=== PATIENT | male | born 1945 | race Caucasian/White ===

== ENCOUNTER 2020-02-18 06:46 | Inpatient (IN) | payer MEDICARE, BC ==
[2020-02-16 12:25] LABS: HCT (SEDRATE) 45.1 % (39.2-51.8)
[2020-02-16 12:31] LABS: BASOPHILS # (AUTO) 0.02 x10^3/uL (0-0.1); BASOPHILS % (AUTO) 0 % (0-1); EOSINOPHILS # (AUTO) 0.17 x10^3/uL (0-0.4); EOSINOPHILS % (AUTO) 3 % (1-7); LYMPHOCYTES # (AUTO) 1.87 x10^3/uL (1-3.4); LYMPHOCYTES % (AUTO) 32 % (22-44); MD NO; MEAN CORPUSCULAR HEMOGLOBIN 33.6 pg (27.5-34.5); MEAN CORPUSCULAR VOLUME 98.9 fL (81-97); MEAN PLATELET VOLUME 8.4 fL (7.4-10.4); MONOCYTES # (AUTO) 0.53 x10^3/uL (0.2-0.8); MONOCYTES % (AUTO) 9 % (2-9); NEUTROPHILS # (AUTO) 3.24 x10^3/uL (1.8-6.8); NEUTROPHILS % (AUTO) 56 % (42-75); PLATELET COUNT 215 x10^3/uL (130-400); RED BLOOD COUNT 4.52 x10^6/uL (4.38-5.82); RED CELL DISTRIBUTION WIDTH 12.8 % (9.4-14.8)
[2020-02-16 12:36] LABS: INTERNATIONAL NORMALIZED RATIO 1.01 (0.93-1.1); PROTHROMBIN TIME 10.7 Seconds (9.6-11.5)
[2020-02-16 12:38] LABS: ALANINE AMINOTRANSFERASE 24 U/L (12-78); ALBUMIN 3.7 g/dL (3.4-5.0); ANION GAP 5 mmol/L (5-15); CALCIUM 9.7 mg/dL (8.5-10.1); CHLORIDE 110 mmol/L (98-107)
[2020-02-16 12:41] LABS: ALKALINE PHOSPHATASE 96 U/L (45-117); BILIRUBIN,TOTAL 0.4 mg/dL (0.2-1.0); TOTAL PROTEIN 7.9 g/dL (6.4-8.2)
[~2020-02-18] VITALS: Ht 182.9 cm; Wt 110.0 kg
[~2020-02-18 06:46] MED LIST: ASPI-496 PO; CARV3.1212 PO; Fish Oil PO; Flax Seed Oil PO; LOSA50TA14 PO; MAGN250T8 PO; Saw Palmetto PO; Super B Complex PO; TAMS-11 PO
[2020-02-18] MEDS ORDERED: LACTATED RINGERS 1,000 ML IV SCH (07:14)
[2020-02-18] MEDS ORDERED: CHLORHEXIDINE 15 ML UDC ONE (07:16)
[2020-02-18] MEDS ORDERED: CHLORHEXIDINE 15 ML UDC MM ONE (07:30)
[2020-02-18] MEDS ORDERED: VANCOMYCIN PMX 1GM/200ML 200 ML IV ONE (07:30)
[2020-02-18] MEDS ORDERED: FENTANYL PF 250 MCG/5ML ONE ×2 (08:41→12:31)
[2020-02-18] MEDS ORDERED: MIDAZOLAM 1 MG/ML, 2ML ONE (08:41)
[2020-02-18] MEDS ORDERED: methylPREDNISolone *ACETATE* 40 MG/ML ONE (08:55)
[2020-02-18] MEDS ORDERED: BUPIVACAINE/PF-EPI 0.5% 1:200K ONE (08:55)
[2020-02-18] MEDS ORDERED: BACITRACIN 50,000 UNIT ONE (08:56)
[2020-02-18] MEDS ORDERED: TRANEXAMIC ACID 100 MG/ML, 10ML ONE (08:56)
[2020-02-18] MEDS ORDERED: LABETALOL 5MG/ML, 20ML IVPush PRN (09:30)
[2020-02-18] MEDS ORDERED: DEXAMETHASONE 4 MG/ML, 1ML IVPush PRN (09:30)
[2020-02-18] MEDS ORDERED: MAGNESIUM HYDROXIDE 8%, 30ML UDC PO PRN (09:30)
[2020-02-18] MEDS ORDERED: ONDANSETRON 2MG/ML, 2ML IVPush PRN ×2 (09:30→11:00)
[2020-02-18] MEDS ORDERED: PROMETHAZINE 25 MG/ML, 1ML IM PRN (09:30)
[2020-02-18] MEDS ORDERED: morphine SULFATE 10 MG/ML, 1ML IVPush PRN (09:30)
[2020-02-18] MEDS: KETOROLAC 30 MG/1 ML IVPush SCH ×2 (09:30→18:30)
[2020-02-18] MEDS ORDERED: BISACODYL 10 MG SUPP PR PRN (09:30)
[2020-02-18] MEDS ORDERED: DIAZEPAM 5 MG TABLET PO PRN (09:30)
[2020-02-18] MEDS ORDERED: ZOLPIDEM 5MG TABLET PO PRN (09:30)
[2020-02-18] MEDS ORDERED: DIPHENHYDRAMINE 50 MG CAPSULE PO PRN (09:30)
[2020-02-18] MEDS ORDERED: SENNA/DOCUSATE TABLET PO PRN (09:30)
[2020-02-18] MEDS ORDERED: DIPHENHYDRAMINE 50 MG/ML, 1ML IM PRN (09:30)
[2020-02-18] MEDS ORDERED: CEFAZOLIN PMX 1GM/50ML 50 ML IVPB SCH (09:30)
[2020-02-18] MEDS ORDERED: D5%-0.9% NACL+KCL 20MEQ 1,000 ML IV SCH (09:30)
[2020-02-18] MEDS: LABETALOL 5 MG/ML SYR. (IV ONLY) IVPush SCH ×2 (09:30→17:30)
[2020-02-18] MEDS ORDERED: PHARMACY MAY ADJ FOR RENAL FX MC PRN (09:30)
[2020-02-18] MEDS ORDERED: DIPHENHYDRAMINE 50 MG/ML, 1ML IVPush PRN (09:30)
[2020-02-18] MEDS ORDERED: LORazepam 1MG TABLET PO PRN (09:30)
[2020-02-18] MEDS ORDERED: OXYcodone IR 5MG TABLET PO PRN ×2 (09:30)
[2020-02-18] MEDS ORDERED: ROCURONIUM 10 MG/ML,10ML ONE (09:42)
[2020-02-18] MEDS ORDERED: SUCCINYLCHOLINE 20 MG/ML, 10ML ONE (09:42)
[2020-02-18] MEDS ORDERED: DEXAMETHASONE 4 MG/ML, 1ML ONE (09:42)
[2020-02-18] MEDS ORDERED: ONDANSETRON 2MG/ML, 2ML ONE (09:42)
[2020-02-18] MEDS ORDERED: CEFAZOLIN 1,000 MG ONE (09:42)
[2020-02-18] MEDS ORDERED: THROMBIN 20,000 UNIT VIAL TP ONE ×2 (10:43→10:47)
[2020-02-18] MEDS ORDERED: hydrALAzine 20 MG/ML, 1ML IV PRN (11:00)
[2020-02-18] MEDS ORDERED: MEPERIDINE/PF 25MG/0.5ML IVPush PRN (11:00)
[2020-02-18] MEDS ORDERED: DIAZEPAM 5 MG/ML, 2ML IV PRN ×2 (11:00)
[2020-02-18] MEDS ORDERED: LABETALOL 5MG/ML, 20ML IV PRN (11:00)
[2020-02-18] MEDS ORDERED: FENTANYL PF 100 MCG/2ML IV PRN (11:00)
[2020-02-18] MEDS ORDERED: KETOROLAC 30 MG/1 ML IV PRN (11:00)
[2020-02-18] MEDS ORDERED: METOCLOPRAMIDE 5 MG/ML, 2ML IV PRN (11:00)
[2020-02-18] MEDS ORDERED: OXYcodone 5 MG/5 ML ORAL.SOL UDC PO PRN (11:00)
[2020-02-18] MEDS ORDERED: PROMETHAZINE 25 MG/ML, 1ML IV PRN (11:00)
[2020-02-18] MEDS ORDERED: HYDROmorphone 1 MG/ML, 1ML INJ IV PRN (11:00)
[2020-02-18] MEDS ORDERED: ALBUTEROL SULFATE 2.5 MG/3 ML NPPB PRN (11:00)
[2020-02-18] MEDS ORDERED: FENTANYL PF 100 MCG/2ML ONE ×2 (11:50→15:05)
[2020-02-18] MEDS ORDERED: PROPOFOL 100 ML ONE (12:07)
[2020-02-18] MEDS ORDERED: VANCOMYCIN 500 MG ONE (13:42)
[2020-02-18] MEDS ORDERED: VANCOMYCIN 500 MG IVPB ONE (13:47)
[2020-02-18] MEDS ORDERED: ACETAMINOPHEN 325 MG TABLET PO SCH (15:00)
[2020-02-18] MEDS ORDERED: OXYcodone 5 MG/5 ML ORAL.SOL UDC ONE (15:05)
[2020-02-18] MEDS: METHOCARBAMOL 1,000 MG in DEXTROSE 5% 100 ML IV PRN ×2 (15:09→23:29)
[2020-02-18] MEDS ORDERED: ACETAMINOPHEN 650 MG/20.3 ML UDC ONE (15:13)
[2020-02-18] MEDS ORDERED: DIAZEPAM 5 MG/ML, 2ML ONE (15:16)
[2020-02-18] MEDS ORDERED: SODIUM CHLORIDE 0.9% 1,000ML IV SCH (17:00)
[2020-02-18] MEDS ORDERED: METHOCARBAMOL 1,000 MG in DEXTROSE 5% 100 ML IV PRN (17:30)
[2020-02-18 18:31] VITALS: BP 146/92
[2020-02-18] MEDS: CEFAZOLIN PMX 1GM/50ML 50 ML IVPB SCH (18:31)
[2020-02-18] MEDS: CARVEDILOL 3.125 MG TABLET PO SCH (18:31)
[2020-02-18] MEDS: D5%-0.9% NACL+KCL 20MEQ 1,000 ML IV SCH (18:31)
[2020-02-18] MEDS ORDERED: LOSARTAN 50MG TABLET ONE (18:36)
[2020-02-18 18:48] VITALS: BP 148/84
[2020-02-18] MEDS ORDERED: TAMSULOSIN 0.4 MG CAP.ER.24H PO SCH (21:00)
[2020-02-18] MEDS: ACETAMINOPHEN 500 MG TABLET PO SCH (21:51)
[2020-02-19 00:55] VITALS: BP 119/65
[2020-02-19] MEDS: KETOROLAC 30 MG/1 ML IVPush SCH ×2 (01:30→09:30)
[2020-02-19] MEDS: LABETALOL 5 MG/ML SYR. (IV ONLY) IVPush SCH ×2 (01:30→09:30)
[2020-02-19] MEDS: CEFAZOLIN PMX 1GM/50ML 50 ML IVPB SCH (02:05)
[2020-02-19] MEDS: D5%-0.9% NACL+KCL 20MEQ 1,000 ML IV SCH (03:00)
[2020-02-19] MEDS ORDERED: ACETAMINOPHEN 500 MG TABLET PO SCH (03:00)
[2020-02-19] MEDS: ACETAMINOPHEN 500 MG TABLET PO SCH ×3 (03:35→14:28)
[2020-02-19 04:01] VITALS: BP 115/66
[2020-02-19 05:53] LABS: BASOPHILS # (AUTO) 0.04 x10^3/uL (0-0.1); BASOPHILS % (AUTO) 0 % (0-1); EOSINOPHILS # (AUTO) 0.04 x10^3/uL (0-0.4); EOSINOPHILS % (AUTO) 0 % (1-7); LYMPHOCYTES # (AUTO) 1.48 x10^3/uL (1-3.4); LYMPHOCYTES % (AUTO) 15 % (22-44); MD NO; MEAN CORPUSCULAR HEMOGLOBIN 33.1 pg (27.5-34.5); MEAN CORPUSCULAR HGB CONC 33.2 g/dL (33.2-36.2); MEAN CORPUSCULAR VOLUME 99.8 fL (81-97); MEAN PLATELET VOLUME 8.7 fL (7.4-10.4); MONOCYTES # (AUTO) 0.78 x10^3/uL (0.2-0.8); MONOCYTES % (AUTO) 8 % (2-9); NEUTROPHILS # (AUTO) 7.43 x10^3/uL (1.8-6.8); NEUTROPHILS % (AUTO) 76 % (42-75); PLATELET COUNT 186 x10^3/uL (130-400); RED BLOOD COUNT 3.73 x10^6/uL (4.38-5.82); RED CELL DISTRIBUTION WIDTH 12.9 % (9.4-14.8)
[2020-02-19] MEDS: CARVEDILOL 3.125 MG TABLET PO SCH (06:25)
[2020-02-19 08:00] VITALS: BP 101/64
[2020-02-19] MEDS ORDERED: MULTIVITS,STRESS FORMULA 1 TABLET PO SCH (09:00)
[2020-02-19] MEDS ORDERED: LOSARTAN 50MG TABLET PO SCH (09:00)
[2020-02-19] MEDS ORDERED: MAGNESIUM OXIDE 400 MG TABLET PO SCH (09:00)
[2020-02-19] MEDS ORDERED: OMEGA-3/FISH OIL CAPSULE PO SCH (09:00)
[2020-02-19] MEDS ORDERED: ASPI-496 PO (09:57)
[2020-02-19] MEDS ORDERED: METH750T87 PO (10:23)
[2020-02-19] MEDS ORDERED: HYDR-3240 PO (10:24)
[2020-02-19 13:28] VITALS: BP 127/76
== END 2020-02-19 15:32 | disposition home or self-care (01) | DRG 472 ==
LOC: ORIP 06:46 → EDSTATUS 09:00 → 4NE 16:30
PROVIDERS: ADMIT Orthopaedic Surgery Orthopaedic Surgery of the Spine; ATTEND Orthopaedic Surgery Orthopaedic Surgery of the Spine
PROC: 0RB30ZZ Excision of Cervical Vertebral Disc, Open Approach (ICD-10-PCS; 2020-02-18)
PROC: 4A10X4G Monitoring of Central Nervous Electrical Activity, Intraoperative, External Approach (ICD-10-PCS; 2020-02-18)
PROC: 0RG20A0 Fusion of 2 or more Cervical Vertebral Joints with Interbody Fusion Device, Anterior Approach, Anterior Column, Open Approach (ICD-10-PCS; principal; 2020-02-18 09:15)
DX: M48.02 Spinal stenosis, cervical region (principal); M50.01 Cervical disc disorder with myelopathy, high cervical region; M50.021 Cervical disc disorder at C4-C5 level with myelopathy; M50.022 Cervical disc disorder at C5-C6 level with myelopathy; R13.10 Dysphagia, unspecified; I10 Essential (primary) hypertension; N40.0 Benign prostatic hyperplasia without lower urinary tract symptoms; Z79.899 Other long term (current) drug therapy; M50.121 Cervical disc disorder at C4-C5 level with radiculopathy; M50.122 Cervical disc disorder at C5-C6 level with radiculopathy
CPT/HCPCS: 36415; 71046; 72040; 80053; 83036; 85025; 85610; 85651; 85730; 93005; 95938; 95941; C1713; C1776; G0378; J0690; J1100; J1885; J2250; J2405; J2704; J3010; J3360; J3370; C1760; C1762; C1889; J0330; J1030; J2800; J3480; J7120